=== PATIENT | male | born 1970 | race Caucasian/White ===

== ENCOUNTER → 2019-07-14 | Outpatient (CLI) | payer OTHER, SELFPAY ==
[2019-07-12 06:39] VITALS: BMI 38.9
--- NOTE | 2019-07-12 10:30 | MASS_PTH ---
PATIENT: CHAZ MCKEON LOC: [facility] U#:[id number] AGE/SX: 48/M ROOM: RE07/14/[address]: Dr. Blaine Vaughn MD : [id number] BED: DIS: 07/14/2019 SPEC #: [id number] RECD: 07/14/19 07:42 STATUS: SHIELA KENTRELL #: [id number] JOSEFINA: 07/12/19 10:[address]: Blaine Vaughn DEPT: SURGICAL PATHOLOGY RECD BY: Paresh Monte ENTERED: 07/14/19 09:31 SP TYPE: Mass OTHR DR: Davon Valentine, PLACEMENT INTERVIEWER-C Tissues: Abdomen, NOS Procedures: Surgery Specimen Level III HEADER OPERATION: Right abdomen biopsy PRE-OP DIAGNOSIS: Right abdomen mass TISSUE SUBMITTED: Right abdomen tissue MICROSCOPIC DIAGNOSIS Right abdomen mass, core biopsy: Mature adipose tissue, consistent with lipoma. Negative for malignancy. SJ:kaylynn 07/15/19 COMMENT Clinical correlation and appropriate follow up are necessary. MICROSCOPIC DESCRIPTION Slides are reviewed. GROSS DESCRIPTION Received in fixative is one container labeled with the patient's name and designated right abdomen. The specimen consists of multiple elongated fragments of fong soft tissue that in aggregate measure 1.5 x 1 x 0.1 cm. The specimen is totally submitted in one cassette. / SJ:kaylynn 07/14/19 TC:1 CPT: 40281
== END | disposition home or self-care (01) ==
LOC: LABSPEC 08:50
PROVIDERS: Family Provider Nurse Practitioner Family; PCP Nurse Practitioner Family; Referring Provider Surgery; Visit Provider Surgery
DX: R19.03 Right lower quadrant abdominal swelling, mass and lump (principal)
CPT/HCPCS: 88304; 88305

== ENCOUNTER → 2019-10-10 | Outpatient (CLI) | payer OTHER, SELFPAY ==
[2019-10-08 15:36] VITALS: BMI 38.9
--- NOTE | 2019-10-10 17:20 | CT_ITS ---
STUDY: CTA CHEST REASON FOR EXAM: Male, 49 years old. MARFAN SYNDROME, AORTIC ROOT DILATION, YEARLY CHECK UP RADIATION DOSAGE (If Supplied By Facility): CTDIvol = ( 13.85 ) mGy, DLP = ( 544.60 ) mGycm TECHNIQUE: The examination was performed with the intravenous administration of IV 100mL Isovue-370. Post-processing of the angiographic images was performed, with multiplanar reformation and 3D reconstruction. Individualized dose optimization techniques were used for this CT. COMPARISON: None. FINDINGS: Normal enhancement of the main pulmonary artery and right and left pulmonary arteries. Normal enhancement of the bilateral peripheral pulmonary arteries. There is no demonstrated pulmonary embolism. 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 The aneurysm measures approximately 5.4 cm in length. The ascending thoracic aorta is partially obscured by motion (no cardiac gating utilized) with greatest axial dimension measuring up to 3.6 cm, stable. Descending thoracic aorta (at the left pulmonary artery level) measures 2.9 x 2.9 cm. There is no demonstrated aortic dissection. There is mild cardiomegaly. Stable trace pericardial fluid. Normal mediastinum. Normal hilar regions. Normal visualized trachea and bronchi. The lungs are well expanded. Normal pulmonary parenchyma. Normal pleura. Normal chest wall structures. There are degenerative changes of thoracic spine. The spleen is surgically absent with residual splenic tissue/splenule is in the left upper abdomen. CT/CTA Chest W/WO Contrast IMPRESSION: 1. Increased size of fusiform aneurysm of the distal aortic/proximal ascending thoracic aorta currently measuring up to 4.2 cm in greatest axial dimension (previously measured up to 3.7 cm). 2. Mild cardiomegaly. Stable trace pleural fluid. Electronically Signed: Oni Gutierrez MD (Brooks) at 15:36 EST , Service support ,
== END | disposition home or self-care (01) ==
LOC: CT 17:20
PROVIDERS: PCP Nurse Practitioner Family; Referring Provider Specialist; Visit Provider Specialist
DX: I77.810 Thoracic aortic ectasia (principal); Q87.40 Marfan syndrome, unspecified
CPT/HCPCS: 71275; Q9967

== ENCOUNTER → 2019-10-23 | Outpatient (CLI) | payer OTHER, SELFPAY ==
[2019-10-08 15:36] VITALS: BMI 38.9
--- NOTE | 2019-10-23 14:58 | ECHOCS_ITS ---
Reason For Study: Dilated AO Root Procedure This was a 2D Doppler, Color Flow transthoracic echocardiogram. Contrast injection was performed. The study was technically difficult. Exam performed in department. Left Ventricle Normal LV size. The estimated ejection fraction is 65 %. No evidence for diastolic dysfunction. No regional wall motion abnormalities noted. Right Ventricle Normal RV size. Normal systolic function. Atria Normal left atrium. Normal right atrium. No doppler evidence for ASD. Mitral Valve There is no mitral valve stenosis. No mitral valve insufficiency. Tricuspid Valve There is no tricuspid stenosis. Unable to estimate RV systolic pressure due to insufficient tricuspid regurgitant envelope. No tricuspid valve insufficiency. Aortic Valve Trisinus/trileaflet aortic valve. There is no aortic stenosis. No aortic valve insufficiency. Pulmonic Valve There is no pulmonic valvular stenosis. No pulmonic valve insufficiency. Great Vessels Mildly dilated aortic root. Pericardium/Pleural No pericardial effusion. Medication 22 gauge I.V. with prn adaptor inserted into right arm. Diluted definity 3ml given slow IV push to enhance endocardial definition. MMode/2D Measurements & Calculations LVIDd: 5.2 cm IVSd: 1.3 cm Ao root diam: 4.3 cm LVIDs: 3.7 cm LVPWd: 1.4 cm LA dimension: 4.5 cm FS: 29.8 % LAV(MOD-sp4): 76.5 ml LA A4 area: 24.4 cm2 RA A4 area: 19.7 cm2 Time Measurements MV dec time: 0.27 sec Doppler Measurements & Calculations MV E max gabino: 124.4 cm/sec Lat Peak E' Gabino: 11.6 cm/sec Med Peak E' Gabino: 11.4 cm/sec MV A max gabino: 63.0 cm/sec E/E' lat: 10.8 E/E' med: 10.9 MV E/A: 2.0 MV V2 max: 146.6 cm/sec MV P1/2t max gabino: 147.5 cm/sec Ao V2 max: 147.2 cm/sec MV max P.6 mmHg MV P1/2t: 111.4 msec Ao max P.7 mmHg MV V2 mean: 70.1 cm/sec MV dec slope: 387.8 cm/sec2 Ao V2 mean: 91.4 cm/sec MV mean P.5 mmHg Ao mean P.9 mmHg MV V2 VTI: 42.6 cm MVA(P1/2t): 2.0 cm2 Ao V2 VTI: 29.8 cm LV V1 max: 124.2 cm/sec PA V2 max: 108.3 cm/sec TR max gabino: 323.2 cm/sec LV V1 max P.2 mmHg TR max P.8 mmHg LV V1 mean P.0 mmHg LV V1 mean: 80.9 cm/sec LV V1 VTI: 28.4 cm Interpretation Summary The estimated ejection fraction is 65 %. No evidence for diastolic dysfunction. Mildly dilated aortic root. Ordering Physician: Richard Davidson Referring Physician: Richard Davidson Performed By: Nader Knight RCS
== END | disposition home or self-care (01) ==
PROVIDERS: PCP Nurse Practitioner Family; Referring Provider Specialist; Visit Provider Specialist
DX: I35.1 Nonrheumatic aortic (valve) insufficiency (principal); I34.0 Nonrheumatic mitral (valve) insufficiency; I77.810 Thoracic aortic ectasia; Q87.40 Marfan syndrome, unspecified
CPT/HCPCS: 93306; Q9957; A4216; C8929

== ENCOUNTER → 2020-11-12 13:30 | Outpatient (CLI) | payer OTHER, SELFPAY ==
[2020-06-16 11:42] VITALS: BMI 37.7
--- NOTE | 2020-11-12 13:43 | ECHOCS_ITS ---
Reason For Study: AR, MR, Marfans Syndrome Procedure This was a 2D Doppler, Color Flow transthoracic echocardiogram. The study was technically difficult. Contrast injection was performed. Exam performed in department. Left Ventricle Normal LV size. The estimated ejection fraction is 60 %. No evidence for diastolic dysfunction. No regional wall motion abnormalities noted. Right Ventricle Normal RV size. Normal systolic function. Atria Normal left atrium. Normal right atrium. No doppler evidence for ASD. Mitral Valve There is no mitral valve stenosis. No mitral valve insufficiency. Tricuspid Valve There is no tricuspid stenosis. Trivial tricuspid valve insufficiency. Unable to estimate RV systolic pressure due to insufficient tricuspid regurgitant envelope. Aortic Valve There is no aortic stenosis. Trivial aortic valve insufficiency. Pulmonic Valve There is no pulmonic valvular stenosis. No pulmonic valve insufficiency. Great Vessels Mildly dilated aortic root. Pericardium/Pleural No pericardial effusion. Medication 22 gauge I.V. with prn adaptor inserted into left arm. Diluted definity 2ml given slow IV push to enhance endocardial definition. MMode/2D Measurements & Calculations LVIDd: 5.3 cm IVSd: 1.4 cm Ao root diam: 4.2 cm LVIDs: 3.3 cm LVPWd: 1.4 cm LA dimension: 4.6 cm FS: 36.5 % LAV(MOD-bp): 97.1 ml LA A4 area: 27.0 cm2 RA A4 area: 20.0 cm2 LAV(MOD-bp) Indexed: 36.1 ml/m2 LAV(MOD-sp2): 97.6 ml LAV(MOD-sp4): 97.9 ml Time Measurements MV dec time: 0.20 sec Doppler Measurements & Calculations MV E max gabino: 117.6 cm/sec Lat Peak E' Gabino: 8.3 cm/sec Med Peak E' Gabino: 9.0 cm/sec MV A max gabino: 61.3 cm/sec E/E' lat: 14.2 E/E' med: 13.0 MV E/A: 1.9 MV V2 max: 115.5 cm/sec MV P1/2t max gabino: 114.0 cm/sec Ao V2 max: 163.3 cm/sec MV max P.3 mmHg MV P1/2t: 89.1 msec Ao max P.7 mmHg MV V2 mean: 63.2 cm/sec MV dec slope: 374.9 cm/sec2 MV mean P.9 mmHg MV V2 VTI: 32.9 cm MVA(P1/2t): 2.5 cm2 AI max gabino: 365.4 cm/sec LV V1 max: 114.8 cm/sec PA V2 max: 98.2 cm/sec AI max P.4 mmHg LV V1 max P.3 mmHg AI dec slope: 239.9 cm/sec2 AI P1/2t: 446.1 msec TR max gabino: 277.8 cm/sec TR max P.9 mmHg Interpretation Summary The estimated ejection fraction is 60 %. No evidence for diastolic dysfunction. Mildly dilated aortic root. Trivial aortic valve insufficiency. The study was technically difficult. Contrast injection was performed. Ordering Physician: Richard Davidson Referring Physician: Richard Davidson Performed By: Nader Knight RCS
== END ==
PROVIDERS: PCP Nurse Practitioner Family; Referring Provider Specialist; Visit Provider Specialist
DX: Q87.40 Marfan syndrome, unspecified (principal)
CPT/HCPCS: 93306; Q9957; A4216; C8929

== ENCOUNTER 2021-02-07 21:30 | Emergency (ER) | payer OTHER, SELFPAY ==
[2020-12-03 08:38] VITALS: BMI 38.9
[2021-02-07] VITALS (8 sets, daily range): BP systolic 138–150; BP diastolic 57–71; PULSE 67–83; RESP 15–17; TEMP 36.9–38.6; O2SAT 94–99; BMI 39.5
--- NOTE | 2021-02-07 21:47 | RAD_ITS ---
STUDY: X-RAY CHEST REASON FOR EXAM: Male, 50 years old. Fever and cough TECHNIQUE: Single AP portable view of the chest. COMPARISON: 04/27/2014 FINDINGS: Lungs are mildly hypoinflated. There is diffuse patchy airspace disease bilaterally suggesting infection such as COVID. No consolidation or effusions Mild cardiomegaly. Normal mediastinum and gricel. Normal visualized pulmonary arteries. Normal visualized aortic arch and descending thoracic aorta. Normal visualized thoracic spine. Normal visualized ribs, clavicles, and shoulders. There is no demonstrated abnormality of the visualized soft tissue structures of the upper abdomen. RAD/Chest 1 View (Portable) IMPRESSION: Mild cardiomegaly. Diffuse patchy airspace disease bilaterally suggesting infection such as COVID. Electronically Signed: Vinnie Vazquez DO at 22:38 EDT Tel , Service support ,
--- NOTE | 2021-02-07 21:48 | EDS_ITS ---
HPI History of Present Illness Chief Complaint: Cold Sx Informant: patient Narrative Narrative: 50-year-old male presents the emergency department for the evaluation of fever. Patient states on Sunday night his symptoms began. He notes headache dry cough decreased appetite generalized myalgias and continued fever. Does not take anything for this. 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 He is on Xarelto for history of DVT. [facility] Medical History (Updated 02/07/21 @ 23:[address] Antolin Hernández DO) Aortic insufficiency Chronic anticoagulation Chronic neck and back pain Chronic venous insufficiency Dilated aortic root Erectile dysfunction HDL deficiency History of deep venous thrombosis Knee pain Marfans syndrome Migraine Mitral insufficiency Obesity (BMI 30-39.9) MARCIO (obstructive sleep apnea) Subcutaneous mass of abdominal wall Venous insufficiency of both lower extremities Ventral incisional hernia without obstruction or gangrene Home Medications rivaroxaban 2.5 mg tablet 2.5 mg PO DAILY tab 07/07/19 [History Last Taken Unknown] atenolol 50 mg tablet 50 mg PO QHS #90 tab 11/10/20 [Rx Last Taken Unknown] albuterol sulfate [Ventolin HFA] 2 puff INHALATION Q4H PRN PRN #1 inhaler 02/07/21 [Rx Last Taken Unknown] amoxicillin-pot clavulanate 875 mg PO Q12H #20 tablet 02/07/21 [Rx Last Taken Unknown] doxycycline monohydrate 100 mg PO BID #14 capsule 02/07/21 [Rx Last Taken Unknown] Allergy/AdvReac Type Severity Reaction Status Date / Time No Known Allergies Allergy Verified 02/07/21 21:33 Family History Mother Arthritis Sister Arthritis Diabetes High cholesterol Father Marfan's syndrome at age 37 Son Marfan's syndrome Daughter Marfan's syndrome Surgical History History of biopsy (~07/2019) History of eye surgery History of splenectomy History of vein stripping (~2013) Social History Smoking Status: Never smoker alcohol intake: current alcohol intake frequency: a few times a month substance use type: does not use caffeine: Yes Type: carbonated beverages Number of servings: 2, coffee Number of servings: 2 and tea ROS ROS ED Constitutional Constitutional ED: Reports chills, fever(s) and sweats; Denies weight loss Eyes Eyes: Denies change in vision or diplopia ENT ENT ED: Denies ear pain, rhinorrhea or sore throat Cardiovascular Cardiovascular: Denies chest pain, orthopnea, palpitations or racing heartbeat Respiratory/Chest Respiratory/Chest: Reports cough and dyspnea; Denies orthopnea or sputum Gastrointestinal Gastrointestinal: Reports other Details: Anorexia ; Denies abdominal pain, diarrhea, nausea or vomiting Genitourinary Genitourinary ED: Denies dysuria, hematuria or urinary frequency Musculoskeletal Musculoskeletal: Reports myalgias; Denies arthralgias or neck pain Integumentary Denies abscess or rash Neurologic Neurologic: Reports headache(s); Denies weakness Psychiatric Psychiatric: Denies anxiety, depression, suicidal ideation or suicidal thoughts Endocrine Endocrinology: Denies polydipsia, polyphagia or polyuria Allergic/Immunologic Allergic/Immunologic ED: Denies mouth swelling, tongue swelling or urticaria EXAM Physical Exam Const Vital Signs: 02/07/21 21:31 02/07/21 21:40 02/07/21 21:59 Temperature 101.5 F H 101.5 F H 101.2 F H Temperature Source Temporal Oral Temporal Pulse Rate 83 83 Respiratory Rate 15 15 Blood Pressure 138/57 H 138/57 H Blood Pressure Mean 84 84 Pulse Ox 94 94 Oxygen Delivery Method Room Air Room Air 02/07/21 22:12 02/07/21 22:28 Temperature Temperature Source Pulse Rate 80 Respiratory Rate 16 17 Blood Pressure 150/71 H Blood Pressure Mean 97 Pulse Ox 95 Oxygen Delivery Method Room Air Positive well nourished and well developed General Appearance ED: well developed HEENT Reports normocephalic, head/scalp atraumatic and moist mucous membranes Eyes PERRL and EOMs intact bilaterally Neck no lymphadenopathy, supple and no JVD Resp normal respiratory effort and clear to auscultation bilaterally Cardio regular rate, regular rhythm and no murmurs GI normal to inspection, nondistended, normoactive bowel sounds and non-tender Palpation: soft Back/Spine no CVA tenderness and normal ROM Extremity normal to inspection General Extremety ED: Negative for edema General Extremity: Negative for edema Neuro oriented x3 and CN's II-XII intact bilaterally Sensorium / Orientation: alert Motor Exam: strength 5/5 throughout Psych mental status grossly normal Mood & Affect: Negative for depressed or tearful Skin no rashes or lesions noted and no wounds MDM MDM MDM Narrative Medical decision making narrative: Patient's white blood cell count was elevated at 16.4. Lactic acid is normal. My interpretation of the chest x-ray is right lower lobe infiltrate. Covid test is negative influenza test is negative. Radiology reads the chest x-ray is multifocal infiltrates. I would disagree. Patient's vital signs are otherwise stable at this point. I think it is reasonable that we can treat him at home for pneumonia. I will write for albuterol MDI with spacer, Augmentin, and doxycycline. Patient to return if worsening or concerns. Lab Data Attestation: I reviewed the patient's lab results. Labs: Laboratory Results - last 24 hr 02/07/21 02/07/21 02/07/21 22:10 22:10 22:10 WBC 16.4 H RBC 4.59 L Hgb 14.0 Hct 43.0 MCV 93.7 MCH 30.5 MCHC 32.6 RDW Std Deviation 45.8 H RDW Coeff of Gia 13.3 Plt Count 241 MPV 10.8 Immature Gran % (Auto) 0.500 Neut % (Auto) 63.9 Lymph % (Auto) 20.9 Catron % (Auto) 14.2 H Eos % (Auto) 0.1 Baso % (Auto) 0.4 Absolute Neuts (auto) 10.5 H Absolute Lymphs (auto) 3.43 Nucleated RBC % 0 Differential Comment SCANNED Diff Path Review January foll PT 14.7 INR 1.2 APTT 34.5 Sodium 140 Potassium 3.8 Chloride 105 Carbon Dioxide 27.0 Anion Gap 8 BUN 13 Creatinine 1.09 Estim Creat Clear Calc 101.75 Est GFR (MDRD) Af Amer 93 Est GFR (MDRD) Non-Af 77 BUN/Creatinine Ratio 11.9 Glucose 114 H Lactic Acid Calcium 8.7 Total Bilirubin 1.50 H AST 30 ALT 44 Alkaline Phosphatase 115 Total Protein 7.7 Albumin 3.4 Globulin 4.3 H Albumin/Globulin Ratio 0.8 L 02/07/21 22:10 WBC RBC Hgb Hct MCV MCH MCHC RDW Std Deviation RDW Coeff of Gia Plt Count MPV Immature Gran % (Auto) Neut % (Auto) Lymph % (Auto) Catron % (Auto) Eos % (Auto) Baso % (Auto) Absolute Neuts (auto) Absolute Lymphs (auto) Nucleated RBC % Differential Comment Diff Path Review PT INR APTT Sodium Potassium Chloride Carbon Dioxide Anion Gap BUN Creatinine Estim Creat Clear Calc Est GFR (MDRD) Af Amer Est GFR (MDRD) Non-Af BUN/Creatinine Ratio Glucose Lactic Acid 1.3 Calcium Total Bilirubin AST ALT Alkaline Phosphatase Total Protein Albumin Globulin Albumin/Globulin Ratio Radiography Diagnostic Testing: Radiology Impression Chest X-Ray 02/07/21 21:47 IMPRESSION: Mild cardiomegaly. Diffuse patchy airspace disease bilaterally suggesting infection such as COVID. Electronically Signed: Vinnie DO Taylor at 22:38 EDT Tel , Service support , Discharge Plan Triage Chief Complaint: Cold Sx ED Provider: Antolin Hernández Dx/Rx/DC Orders Clinical Impression: Pneumonia Instructions: ED Pneumonia (Adult) Prescriptions: New doxycycline monohydrate 100 MG capsule 100 mg PO BID Qty: 14 RF: 0 albuterol sulfate [Ventolin HFA] 1 INHALER inhaler 2 puff inhalation Q4H PRN PRN (Reason: Wheezing) Qty: 1 RF: 0 amoxicillin-pot clavulanate [amoxicillin-pot clavulanate] 875 MG tablet 875 mg PO Q12H Qty: 20 RF: 0 No Action Xarelto 2.5 mg tablet 2.5 mg PO DAILY RF: 0 atenolol 50 mg tablet 50 mg PO QHS Qty: 90 RF: 3 Primary Care Provider: Davon Valentine NP Referrals: Davon Valentine JD EDWARDS CONSULTANT, JD EDWARDS CONSULTANT-C [Primary Care Provider] - 1 Week Activity Restrictions/Additional Instructions: Return if worsening or concerns Disposition Disposition: Home, self care
[2021-02-07] MEDS: Acetaminophen 500 MG Tablet 1000 MG PO (22:01)
[2021-02-07] MEDS: 0.9% Normal Saline 1,000 ML 999 ML IV (22:15)
[2021-02-07 22:30] LABS: Absolute Lymphocyte Count 3.43 X10^3/uL (0.83-4.51); Absolute Neutrophil Count 10.5 X10^3/uL (2.0-7.7); Basophil# 0.07 X10^3/uL; Basophil% 0.4 % (0-1); Eosinophil# 0.01 X10^3/uL; Eosinophils% 0.1 % (0-5); Lymphocyte # 3.43 X10^3/ul (0.83-4.51); Lymphocyte % 20.9 % (19-41); Mean Corp Hgb Conc 32.6 g/dL (32-36); Mean Corpuscular Hgb 30.5 pg (27.0-32.0); Mean Corpuscular Volume 93.7 fL (80-94); Mean Platelet Vol. 10.8 fl (6.2-12.0); Monocyte# 2.33 X10^3/uL; Monocyte% 14.2 % (0-10); NRBC Flagged by Analyzer 0 % (0-5); Neutrophil # 10.52 X10^3/uL (2.7-7.7); Neutrophil % 63.9 % (47-70); POSITIVE DIFFERENTIAL YES; Platelet Count 241 K/mm3 (150-450); RBC Distribution Width CV 13.3 % (11.6-14.6); RBC Distribution Width SD 45.8 fl (35.1-43.9); Red Blood Count 4.59 M/mm3 (4.6-6.2); White Blood Count 16.4 K/mm3 (4.4-11.0)
[2021-02-07 22:34] LABS: Differential Indicated SCAN CRITERIA MET
[2021-02-07 22:42] LABS: International Normalized Ratio 1.2; Prothrombin Time (Protime)PT. 14.7 SECONDS (11.7-14.9)
[2021-02-07 22:43] LABS: Partial Thromboplast Time 34.5 Seconds (24.1-36.2)
[2021-02-07 22:44] LABS: ALB/GLOB Ratio 0.8 RATIO (0.9-2.4); AST(SGOT) 30 U/L (15-37); Alanine Aminotransfer ALT/SGPT 44 U/L (16-61); Albumin, Serum 3.4 g/dL (3.2-5.0); Alkaline Phosphatase 115 U/L (45-117); Anion Gap 8 (5-15); BUN 13 mg/dL (7-18); BUN/Creat Ratio 11.9 RATIO (10-20); Calcium,Total 8.7 mg/dL (8.5-10.1); Chloride 105 mmol/L (98-107); Creatinine, Serum 1.09 mg/dL (0.70-1.30); EST Glomerular Filtration Rate 77 mL/min (>60); Est Glom Filt Rate - Afr Amer 93 mL/min (>60); Estimated Creatinine Clearance 101.75 ml/min; Globulin 4.3 g/dL (2.2-4.2); Glucose 114 mg/dL (74-106); Potassium 3.8 mmol/L (3.5-5.1); Protein, Total 7.7 g/dL (6.4-8.2); Sodium Level 140 mmol/L (136-145)
[2021-02-07 22:52] LABS: Lactic Acid 1.3 mmol/L (0.4-1.9)
[2021-02-07 23:04] LABS: Differential Comment SCANNED
[2021-02-08 10:55] LABS: Pathologist Review Reviewed
== END 2021-02-07 23:57 | disposition home or self-care (01) ==
PROVIDERS: Emergency Provider Emergency Medicine; PCP Nurse Practitioner Family
DX: J18.9 Pneumonia, unspecified organism (principal); I35.1 Nonrheumatic aortic (valve) insufficiency; E66.9 Obesity, unspecified; Z68.30 Body mass index [BMI] 30.0-30.9, adult; Z86.718 Personal history of other venous thrombosis and embolism; Z79.02 Long term (current) use of antithrombotics/antiplatelets
CPT/HCPCS: 71045; 80053; 83605; 85025; 85610; 85730; 87040; 87426; 87804; 96360; 99284; J7030; A4216

== ENCOUNTER → 2022-02-23 | Outpatient (CLI) | payer OTHER, SELFPAY ==
--- NOTE | 2022-02-23 07:55 | ECHOCS_ITS ---
Reason For Study: Dilated Ao Root, Murmur, Marfan's Syndrome Procedure This was a 2D Doppler, Color Flow transthoracic echocardiogram. The study was technically difficult. Contrast injection was performed. Exam performed in department. Left Ventricle Normal LV size. Left ventricular systolic function is normal. The estimated ejection fraction is 60 %. Diastolic function is indeterminate. No regional wall motion abnormalities noted. Right Ventricle Normal RV size. Normal systolic function. Atria The left atrium is mildly enlarged. Normal right atrium. No doppler evidence for ASD. Mitral Valve There is no mitral annular calcification. Normal mitral valve. Trivial mitral valve insufficiency. Tricuspid Valve Normal tricuspid valve. Trivial tricuspid valve insufficiency. Unable to estimate RV systolic pressure due to insufficient tricuspid regurgitant envelope. Aortic Valve 2D Echocardiographic images appearing compatible with an underlying bicuspid aortic valve mild focal thickening/calcification. Mild (1+) aortic valve insufficiency. Pulmonic Valve The pulmonic valve is not well visualized. Mild (1+) eccentric pulmonic valve insufficiency. Great Vessels The thoracic aorta appears to be dilated at the sinus level at 4.8 cm. Mildly dilated aortic root. Pericardium/Pleural No pericardial effusion. Medication 22 gauge I.V. with prn adaptor inserted into right arm. Diluted definity 3ml given slow IV push to enhance endocardial definition. MMode/2D Measurements & Calculations LVIDd: 5.2 cm IVSd: 1.2 cm LVOT diam: 2.4 cm LVIDs: 3.5 cm LVPWd: 1.2 cm RVDd: 3.6 cm FS: 32.5 % LVOT area: 4.3 cm2 Ao root diam: 4.0 cm LAV(MOD-bp): 79.7 ml LVAd ap4: 46.2 cm2 LAV(MOD-bp) Indexed: 29.3 ml/m2 LVLd ap4: 9.3 cm LAV(MOD-sp2): 62.7 ml EDV(MOD-sp4): 186.7 ml LAV(MOD-sp4): 98.8 ml EDV(sp4-el): 194.6 ml LVAs ap4: 29.0 cm2 LVLs ap4: 8.4 cm ESV(MOD-sp4): 88.4 ml ESV(sp4-el): 84.3 ml EF(MOD-sp4): 52.6 % EF(sp4-el): 56.7 % LVAd ap2: 45.2 cm2 SV(MOD-sp4): 98.3 ml SV(MOD-sp2): 80.6 ml LVLd ap2: 9.6 cm EDV(MOD-sp2): 176.0 ml EDV(sp2-el): 181.0 ml LVAs ap2: 30.9 cm2 LVLs ap2: 8.7 cm ESV(MOD-sp2): 95.4 ml ESV(sp2-el): 93.0 ml EF(MOD-sp2): 45.8 % SV(sp4-el): 110.3 ml LA dimension(2D): 4.7 cm LA A4 area: 28.2 cm2 RA A4 area: 18.1 cm2 Doppler Measurements & Calculations MV E max gabino: 87.0 cm/sec Lat Peak E' Gabino: 8.7 cm/sec Med Peak E' Gabino: 5.2 cm/sec MV A max gabino: 48.0 cm/sec E/E' lat: 10.0 E/E' med: 16.8 MV E/A: 1.8 Ao V2 max: 170.8 cm/sec AI max gabino: 331.3 cm/sec LV V1 max: 120.1 cm/sec Ao max P.7 mmHg AI max P.0 mmHg LV V1 max P.8 mmHg Ao V2 mean: 115.2 cm/sec LV V1 mean P.9 mmHg Ao mean P.9 mmHg AI dec slope: 159.4 cm/sec2 LV V1 mean: 80.6 cm/sec Ao V2 VTI: 42.4 cm AI P1/2t: 608.7 msec LV V1 VTI: 30.8 cm MELISSA(I,D): 3.2 cm2 MELISSA(V,D): 3.1 cm2 SV(LVOT): 133.6 ml PA V2 max: 89.6 cm/sec ECHO/Echo Complete W/ Contrast Interpretation Summary The study was technically difficult. Contrast injection was performed. Left ventricular systolic function is normal. The estimated ejection fraction is 60 %. The left atrium is mildly enlarged. Trivial mitral valve insufficiency. Trivial tricuspid valve insufficiency. 2D Echocardiographic images appearing compatible with an underlying bicuspid ao rtic valve mild focal thickening/calcification. Mild (1+) aortic valve insufficiency. Mild (1+) eccentric pulmonic valve insufficiency. The thoracic aorta appears to be dilated at the sinus level at 4.8 cm. Unable to estimate RV systolic pressure due to insufficient tricuspid regurgita nt envelope. Diastolic function is indeterminate. Ordering Physician: Titus Irving/Beka Das Referring Physician: Davon Valentine Performed By: Tootie De La Torre RDCS
== END | disposition home or self-care (01) ==
PROVIDERS: PCP Nurse Practitioner Family; Referring Provider Nurse Practitioner Family; Visit Provider Nurse Practitioner Family
DX: Q87.40 Marfan syndrome, unspecified (principal)
CPT/HCPCS: 93306; Q9957; A4216; C8929

== ENCOUNTER 2022-08-13 20:26 | Emergency (ER) | payer SELFPAY, OTHER ==
[2022-08-13 20:27] VITALS: BP 152/94; PULSE 75; RESP 16; TEMP 36.3; O2SAT 98; BMI 38.2
--- NOTE | 2022-08-13 20:40 | EKG12_ITS ---
Test Reason : CP Blood Pressure : / mmHG Vent. Rate : 074 BPM Atrial Rate : 074 BPM P-R Int : 206 ms QRS Dur : 120 ms QT Int : 402 ms P-R-T Axes : 064 078 235 degrees QTc Int : 446 ms Normal sinus rhythm Possible Left atrial enlargement Incomplete left bundle branch block ST & T wave abnormality, consider inferolateral ischemia Abnormal ECG Confirmed by JULIANN SUH, FANI ([id number]), videotape editor MERON CRUZ ([id number]) on 08/16/2022 11:04:45 AM Referred By: Confirmed By:FANI HUMPHREYS MD
[2022-08-13 20:48] LABS: Absolute Neutrophil Count 3.1 X10^3/uL (2.0-7.7); Basophil# 0.18 X10^3/uL; Basophil% 1.7 % (0-1); Eosinophils% 20.5 % (0-5); Hematocrit 32.9 % (40-54); Hemoglobin 10.7 g/dL (13.0-16.5); Lymphocyte % 41.3 % (19-41); Mean Corp Hgb Conc 32.5 g/dL (32-36); Mean Corpuscular Volume 92.2 fL (80-94); Mean Platelet Vol. 8.9 fl (6.2-12.0); Monocyte% 6.7 % (0-10); NRBC Flagged by Analyzer 0 % (0-5); Neutrophil # 3.08 X10^3/uL (2.7-7.7); Neutrophil % 29.7 % (47-70); POSITIVE DIFFERENTIAL YES; Platelet Count 340 K/mm3 (150-450); RBC Distribution Width CV 13.9 % (11.6-14.6); RBC Distribution Width SD 46.9 fl (35.1-43.9); Red Blood Count 3.57 M/mm3 (4.6-6.2); White Blood Count 10.4 K/mm3 (4.4-11.0)
--- NOTE | 2022-08-13 20:57 | RAD_ITS ---
INDICATION: Right sided chest pain, pleuritic EXAMINATION/TECHNIQUE: X-RAY - XR Chest 1 View COMPARISON: 02/07/2021 chest x-ray FINDINGS: LINES/DEVICES: None. Dual-lead cardiac pacing device projects over the left chest. Intact sternotomy wires are present. LUNGS: Symmetric normal lung volumes. No airspace opacity or abnormal interstitial pattern. No nodule or mass. No pleural effusion or pneumothorax. MEDIASTINUM AND CARDIOVASCULAR STRUCTURES: Heart is upper limit of normal size, however, there is no evidence of pulmonary vascular congestion. BONES AND SOFT TISSUES: No fracture or focal osseous lesion. RAD/Chest 1 View (Portable) IMPRESSION: 1. No radiographic evidence of acute cardiopulmonary disease. Electronically Signed: Haresh Dash DO at 21:34 EST ,
[2022-08-13 21:01] LABS: International Normalized Ratio 2.5; Prothrombin Time (Protime)PT. 26.8 SECONDS (11.7-14.9)
[2022-08-13 21:05] LABS: Anion Gap 5 (5-15); BUN 18 mg/dL (7-18); BUN/Creat Ratio 22.7 RATIO (10-20); Calcium,Total 8.4 mg/dL (8.5-10.1); Chloride 110 mmol/L (98-107); Creatinine, Serum 0.79 mg/dL (0.70-1.30); EST Glomerular Filtration Rate 110 mL/min (>60); Est Glom Filt Rate - Afr Amer 133 mL/min (>60); Estimated Creatinine Clearance 142.55 ml/min; Glucose 100 mg/dL (74-106); Potassium 4.6 mmol/L (3.5-5.1); Sodium Level 142 mmol/L (136-145); Troponin-I HS 12 pg/mL (3.0-78.0)
[2022-08-13 21:08] LABS: Differential Indicated SCAN CRITERIA MET; Eosinophil# 2.13 X10^3/uL
[2022-08-13 21:09] LABS: Differential Comment SCANNED
[2022-08-13 21:27] VITALS: BP 140/77; PULSE 73; RESP 18; O2SAT 95
--- NOTE | 2022-08-13 22:51 | ED.VIS.CHEST ---
HPI History of Present Illness Chief Complaint: Chest Pain Detail of Chief Complaint: Right-sided chest pain with pleuritic component radiating to the right scap Informant: patient and spouse/S.O. 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 He had a metallic prosthetic aortic valve placed and the thoracic aorta arch replaced. This was replaced because he has history of Marfan's and there was concern by cardiothoracic surgeon that he may develop a dissection. Surgery was July 12. He is presently on Coumadin. INR last week was 2.9. He denies hemoptysis. He denies asymmetry of his legs, leg pain or discoloration from normal. He does have remote history of DVT. He denies hematemesis, melena or hematochezia. He denies fever, chills night sweats. He does report insignificant mild cough. He denies rhinorrhea, postnasal drainage or sore throat. He denies ear pain or decreased hearing. He denies urologic symptoms. Prior Similar Symptoms: No Recent Illness/Hospitalization: Yes (Described in the HPI narrative) CVD Risk Factors: Positive for Hypertension; Negative for Hypercholesterolemia or Family History 1' </=55 PE Risk Factors: Positive for Recent Travel/Surgery and - (Patient is on Coumadin. INR is 2.9.); Negative for Recent Immobilization, Prior DVT or PE, Cancer or OCP + Smoking + >/=35 TAD Risk Factors: Positive for Marfan's Syndrome [facility] Medical History Aortic insufficiency Aortic root aneurysm Chronic anticoagulation Chronic neck and back pain Chronic venous insufficiency Dilated aortic root Erectile dysfunction HDL deficiency History of deep venous thrombosis Knee pain Marfans syndrome Migraine Mitral insufficiency Obesity (BMI 30-39.9) MARCIO (obstructive sleep apnea) Subcutaneous mass of abdominal wall Thoracic aortic aneurysm without rupture Venous insufficiency of both lower extremities Ventral incisional hernia without obstruction or gangrene Home Medications acetaminophen 325 mg capsule 650 mg PO Q4H PRN Pain 12/11/22 [History Last Taken Unknown] aspirin 81 mg chewable tablet 81 mg PO DAILY 08/13/22 [History Last Taken Unknown] colchicine 0.6 mg tablet 0.6 mg PO QODAY 08/13/22 [History Last Taken Unknown] metoprolol tartrate 25 mg tablet 25 mg PO BID 08/13/22 [History Last Taken Unknown] warfarin 3 mg tablet 3 mg PO DAILY 08/13/22 [History Last Taken Unknown] Allergy/AdvReac Type Severity Reaction Status Date / Time lidocaine Allergy Other Verified 08/13/22 20:34 Family History Mother Arthritis Sister Arthritis Diabetes High cholesterol Father Marfan's syndrome at age 37 Son Marfan's syndrome Daughter Marfan's syndrome Surgical History H/O aortic valve replacement History of biopsy (~07/2019) History of eye surgery History of splenectomy History of vein stripping (~2013) Social History (Updated 08/13/22 @ 22:[address] Lizandro Munoz MD) household members: spouse Smoking Status: Never smoker alcohol intake: current alcohol intake frequency: a few times a month substance use type: does not use caffeine: Yes Type: carbonated beverages Number of servings: 2, coffee Number of servings: 2 and tea ROS ROS ED Constitutional Constitutional ED: Denies chills, fever(s), subjective, sweats or weight loss Eyes Eyes: Reports none ENT ENT ED: Denies ear pain, rhinorrhea or sore throat Cardiovascular Cardiovascular: Reports as per HPI; Denies orthopnea or paroxysmal nocturnal dyspnea Respiratory/Chest Respiratory/Chest: Denies cough, dyspnea, dyspnea on exertion, orthopnea, paroxysmal nocturnal dyspnea or sputum Gastrointestinal Gastrointestinal: Denies abdominal pain, constipation, diarrhea, melena, nausea or vomiting Genitourinary Genitourinary ED: Denies dysuria, hematuria or urinary frequency Musculoskeletal Musculoskeletal: Reports back pain; Denies arthralgias, myalgias or neck pain Integumentary Denies Abrasions or rash Neurologic Neurologic: Denies headache(s), paresthesias or weakness Psychiatric Psychiatric: Denies anxiety or depression Hematologic/Lymphatic Hematologic/Lymphatic: Reports easy bruising; Denies easy bleeding or lymphadenopathy Allergic/Immunologic Allergic/Immunologic ED: Denies mouth swelling or tongue swelling EXAM Physical Exam Const Vital Signs: 08/13/22 20:27 08/13/22 20:42 08/13/22 20:46 Temperature 97.3 F L Temperature Source Temporal Pulse Rate 75 Respiratory Rate 16 Respiratory Effort Normal Non-Labored Blood Pressure 152/94 H Blood Pressure Mean 113 Pulse Ox 98 Oxygen Delivery Method Room Air Room Air 08/13/22 21:27 Temperature Temperature Source Pulse Rate 73 Respiratory Rate 18 Respiratory Effort Blood Pressure 140/77 H Blood Pressure Mean 98 Pulse Ox 95 Oxygen Delivery Method Room Air Positive well nourished, well developed and obese General Appearance ED: well developed and NAD; Negative for pallor Nutritional Appearance: obese HEENT Reports TM's clear and moist mucous membranes HEENT Narrative: Ears normal. Nares patent. Mucosa moist. Teeth normal. Uvula midline. No erythema or exudate the posterior pharynx. normocephalic and atraumatic Tympanic Membrane ED: Yes TM's clear Eyes PERRL and EOMs intact bilaterally General Eye ED: Negative for pale conjunctiva or scleral icterus Neck no lymphadenopathy, supple and no JVD Neck Narrative: Trachea is midline. There is no carotid bruit. Chest Wall inspection of chest normal and palpation of chest normal Chest Narrative: Well-healed median sternotomy scar noted. There is no sign for consent. Resp normal respiratory effort and clear to auscultation bilaterally Cardio regular rate, regular rhythm, S1 normal heart sound, S2 normal heart sound and no murmurs GI normal to inspection, nondistended, normoactive bowel sounds, soft to palpation, non-tender, non-distended and no masses; Negative for hepatosplenomegaly Back/Spine no CVA tenderness Back/Spine Narrative: Examination of the back is unremarkable. Extremity Extremity Narrative: Bilateral pitting edema, which patient reports is normal. There is no asymmetry, there is no discoloration, there is no leg vein distention, no palpable cord sounds on the distribution deep venous system. General Extremety ED: Yes edema General Extremity: edema Neuro oriented x3, CN's II-XII intact bilaterally and no sensory deficits noted Sensorium / Orientation: awake and alert Motor Exam: strength 5/5 throughout Psych mental status grossly normal Skin no rashes or lesions noted and no wounds General Skin Exam: Negative for jaundice or pallor MDM MDM MDM Narrative Medical decision making narrative: Patient has slight cough. He does complain of pleuritic sided chest pain. He was sent in by the [facility] nurse because of concerned this may represent cardiac ischemia. This may represent pneumonia, pleurisy, need to consider pulmonary embolus. EKG was obtained to rule out cardiac ischemia. Appropriate blood work was obtained. Lab Data Attestation: I reviewed the patient's lab results. Lab results narrative: Patient has mild anemia with an H&H 10.7 and 32.9. BC is unremarkable. INR is 2.55. Electrolyte panels remarkable. Troponin is normal renal function is normal. Labs: Laboratory Results - last 24 hr 08/13/22 08/13/22 08/13/22 20:12 20:40 20:40 WBC 10.4 RBC 3.57 L Hgb 10.7 L Hct 32.9 L MCV 92.2 MCH 30.0 MCHC 32.5 RDW Std Deviation 46.9 H RDW Coeff of Gia 13.9 Plt Count 340 MPV 8.9 Immature Gran % (Auto) 0.100 Neut % (Auto) 29.7 L Lymph % (Auto) 41.3 H Zapata % (Auto) 6.7 Eos % (Auto) 20.5 H Baso % (Auto) 1.7 H Absolute Neuts (auto) 3.1 Absolute Lymphs (auto) 4.30 Nucleated RBC % 0 Differential Comment SCANNED PT 26.8 H INR 2.5 Sodium 142 Potassium 4.6 Chloride 110 H Carbon Dioxide 27.0 Anion Gap 5 BUN 18 Creatinine 0.79 Estim Creat Clear Calc 142.55 Est GFR (MDRD) Af Amer 133 Est GFR (MDRD) Non-Af 110 BUN/Creatinine Ratio 22.7 H Glucose 100 Calcium 8.4 L Troponin I High Sens 12 Radiography Chest X-Ray - ED: 1 View, Read by ED Physician, Unchanged, Normal, Heart, Lungs (There is poor inspiratory volume and evidence of atelectasis. There is no infiltrate. There is no effusion.), Mediastinum, Bony Structures and No Acute Disease Diagnostic Testing: Clinical Impression(s) from Imaging Studies Chest X-Ray 08/13/22 20:57 IMPRESSION: 1. No radiographic evidence of acute cardiopulmonary disease. Electronically Signed: Haresh Dash DO at 21:34 EST , Chest x-ray reveals limited in story volume. Discharge Plan Triage Chief Complaint: Chest Pain ED Provider: Lizandro Munoz Dx/Rx/DC Orders Clinical Impression: Pleuritic chest pain, Anticoagulant long-term use, Marfans syndrome, Aortic valve prosthesis present Instructions: ED Pleurisy Prescriptions: No Action warfarin 3 mg Tablet 3 mg PO DAILY aspirin [Baby Aspirin] 81 mg Tablet,Chewable 81 mg PO DAILY colchicine 0.6 mg Tablet 0.6 mg PO QODAY metoprolol tartrate 25 mg Tablet 25 mg PO BID acetaminophen 325 mg Capsule 650 mg PO Q4H PRN (Reason: Pain) Primary Care Provider: Davon Valentine NP Referrals: Davon Valentine NP, [employer] [employer] [Primary Care Provider] - 1 Week if not improving Disposition Disposition: Home, Self Care
[2022-08-13 23:01] VITALS: BP 139/73; PULSE 76; RESP 18; O2SAT 97
== END 2022-08-13 23:12 | disposition home or self-care (01) ==
PROVIDERS: Emergency Provider Emergency Medicine; PCP Nurse Practitioner Family; Visit Provider Emergency Medicine
DX: R07.81 Pleurodynia (principal); Q87.40 Marfan syndrome, unspecified; Z79.01 Long term (current) use of anticoagulants; Z95.2 Presence of prosthetic heart valve
CPT/HCPCS: 71045; 80048; 84484; 85025; 85610; 93005; 99285; A4216

== ENCOUNTER → 2022-09-27 | Outpatient (CLI) | payer SELFPAY, OTHER ==
--- NOTE | 2022-09-27 09:51 | CR.HP_ITS ---
CR - History & Physical - General Arrival date:: 09/27/22 Arrival time:: 09:51 Date of Referral:: 09/06/22 Date of CR Evaluation:: 09/27/22 Referring Physician: Dr. Rosetta Lynch Primary Diagnosis: Heart valve replacement - History of Present Cardiac Event Onset Date: Enter Onset Date of cardiac illnesses in Comment field below Heart valve replacement or repair:: Yes - 07/12/22 - Sleep Disorder Evaluation Hx of Sleep Apnea: Yes Do you snore loudly (louder than talking or can be heard through closed doors)?: Yes - pt declines sleep study Do you often feel tired/ fatigued/ sleepy during daytime?: Yes Has anyone observed you stop breathing during sleep?: No History of Hypertension (for STOP score): No STOP Results: Positive - Medications Home Medications: Ambulatory Orders Medication Instructions Recorded acetaminophen 325 mg capsule 650 mg PO Q4H PRN Pain 08/13/22 aspirin 81 mg chewable tablet 81 mg PO DAILY 08/13/22 colchicine 0.6 mg tablet 0.6 mg PO QODAY 08/13/22 metoprolol tartrate 25 mg tablet 25 mg PO BID 08/13/22 warfarin 3 mg tablet 3 mg PO DAILY 08/13/22 - Allergies Allergies/Adverse Reactions: Allergies lidocaine Allergy (Verified 08/13/22 20:34) Other stated when given in the IV at [facility] pt coded Advanced Directives - Advanced Directives Power of Academic Guidance Specialist: No Living Will: No Advance Directives Information Provided: No Advance Directives on File: No DNR Order?:: No Past Medical History - Covid-19 Screening Has a serious heart condition:: Yes - Past Medical Illness Medical History: Past Medical History (Last Reviewed 08/13/22 @ 22:[address] Lizandro Munoz MD) Aortic insufficiency I35.1 Aortic root aneurysm I71.21 Chronic anticoagulation Z79.01 Chronic neck and back pain M54.2, M54.9, G89.29 Chronic venous insufficiency I87.2 Dilated aortic root I77.810 Erectile dysfunction N52.9 HDL deficiency E78.6 History of deep venous thrombosis Z86.718 Knee pain M25.569 Marfans syndrome Q87.40 Migraine G43.909 Mitral insufficiency I34.0 Obesity (BMI 30-39.9) E66.9 MARCIO (obstructive sleep apnea) G47.33 Subcutaneous mass of abdominal wall R22.2 Thoracic aortic aneurysm without rupture I71.2 Venous insufficiency of both lower extremities I87.2 Ventral incisional hernia without obstruction or gangrene K43.2 - Past Surgical History Surgical History: Past Surgical History (Last Reviewed 08/13/22 @ 22:[address] Lizandro Munoz MD) H/O aortic valve replacement Z95.2 History of biopsy Onset Date: ~07/2019 Z98.890 of abdominal mass History of eye surgery Z98.890 History of splenectomy Z90.81 History of vein stripping Onset Date: ~2013 Z98.890 - Family History Summary Family History: Family History (Last Reviewed 08/13/22 @ 22:[address] Lizandro Munoz MD) Mother Arthritis Sister Arthritis Diabetes High cholesterol Father Marfan's syndrome at age 37 Son Marfan's syndrome Daughter Marfan's syndrome Social History - Smoking History Smoking Status: Never smoker Hx Tobacco Use: No - Alcohol Use Alcohol Usage: Yes - socially - Substance Abuse Hx Substance Use: No - Occupation Occupation (List type of work in comments):: Employed Hours worked per day:: 8 - Hobbies, Recreation, Social Activities Hobbies: Other - being oustside Recreational Activities: I am able to engage in all my recreational activities Social Environment - Status Marital Status: - Current Living Arrangements Living Environment:: Family - Children How many children do you have?: 3 Do any of your children live nearby?: Yes - Safety Do you feel safe in your surroundings?: Yes - Assistance Do you need any assistance at home?: no Review of Systems - Review of Systems Hints: Right click = Denies ([place]ash). Left click = Reports ([place]) Review of Present Symptoms: Reports: Shortness of Breath with Exertion, PVD, Operative Discomfort - occasional, Angina, Dizziness/Lightheadedness, Fatigue, Appetite - Normal, Sleep - Normal. Denies: Shortness of Breath at Rest, Wound Healing, Heart Arrhythmia/Irregularities, Appetite - Special Diet, Sexual Changes - Pain Is Patient Pain Free?: Yes Pain Location: none Risk Factor Assessment - Vital Signs Pulse Ox: 96 - Pulse Pulse Rate: 74 Pulse Rhythm: Regular - Hypertension Blood Pressure Sitting - Left Arm: 102/70 - Stress Stress: Home/Family - Obesity Height: 6 ft 5 in Weight:: 142.428 kg Weight in Pounds: 314.0 lbs Body Mass Index (BMI): 37.2 Nutritional Referral for Obesity: Yes - medical nutrition therapy - Physical Inactivity Physical Inactivity: Reg Exercise 30 min/day - walking - Risk Stratification Risk Guidelines: Lowest Risk: Risk Factor for Smoking, Moderate Risk: Risk Factor for Dyslipidemia, Risk Factor for Diabetes, Risk Factor for Hypertension, Risk Factor for Sedentary Lifestyle, Risk Factor for Depression, Highest Risk: Risk Factor for Obesity - Family History Family History: Family History (Last Reviewed 08/13/22 @ 22:[address] Lizandro Munoz MD) Mother Arthritis Sister Arthritis Diabetes High cholesterol Father Marfan's syndrome Son Marfan's syndrome Daughter Marfan's syndrome Motivation - Motivation to Participate On a scale of 1 to 10, how prepared are you to commit to attending program?: 8 What do you see as barriers to successfully being able to complete the program?: nothing What do you see as the benefits of succesfully completing the program? In other words, what do you hope to get out of participating in the program?: stamina, exercise program, weigh loss Are there issues you are dealing with that will interfere with completing the program?: no Do you have a spouse or signficant other, family or friends who will help support you to complete the program?: yes
[2022-09-27 10:54] VITALS: BP 102/70; PULSE 74; O2SAT 96; BMI 37.2
--- NOTE | 2022-09-27 10:55 | CR.ITP_ITS ---
Diagnosis - General Information Admitting Diagnosis: Heart Valve Replacement Personal Learning Style:: Audio/Visual, Demonstration, Group, Individual Preference, Written Stage of change r/t lifestyle modifications:: Contemplation Gave educational material for:: Treating Heart Disease, Emotions & Heart Disease, Stress Management & Relaxation, Sleep Disorders & Heart Disease, How The Heart Works, What it means to have Heart Disease, How Coronary Artery Disease is Diagnosed, Heart Procedures, What Heart Medications Do, Risk Factors & Modifications, Living an Active Life, Nutrition - Education/Goals Cardiac Rehabilitation Goals: 1. Maintain the individual as the primary focus of care. 2. To improve the patient's quality of life. 3. Identification of cardiac risk factors and provide cardiac risk factor management. 4. Enhance the psychosocial status of the patient. 5. Reconditioning enough to allow the patient to resume customary activities. 6. Control symptoms of cardiac disease Personal Goals: Initial Assessment: Participate in home exercise program, Improve muscle strength and endurance, Improve diet and eating habits (eat healthier), Control risk factors (learn risk factor modification) Scale for measuring improvement of personal goals: Enter appropriate number in Comments. 2 = Unchanged. 3 = Slightly Better. 4 = Moderate Improvement. 5 = Met my Goal - Diagnosis & Disease Process Outcomes/Goals: Pt IDs own risk factors & lifestyle modifications by Session 10, Verbalizes symptoms of angina & response by session 3., Pt independently manages, Other Additional Outcomes/Goals: Plan/Interventions: Assist Pt to ID & engage in lifestyle modification to reduce CVD risk, Instruct on individual risk factors, Review symptoms of angina & emergency actions, Review secondary diagnosis & identify educational needs., Other see comment 30 day Reassessments:: Not Met 30 day Reassessments:: Not Met 30 day Reassessments:: Not Met 30 day Reassessments:: Not Met Final Reassessments:: Not Met - Safety Referral to Physical Therapy: No Referral to [facility] Case Management: No Fall Risk Assessed:: Yes Assistive Devices:: None Exercise - Initial Assessment - Visit Date of Eval: 09/27/22 - initial eval - Physician Prescribed Exercise Modalities: Treadmill, Airdyne, NuStep, SciFit, Lateral Director Report Frequency: 3x/week for 12 weeks [36 sessions] Intensity: 60-80% of age predicted maximum heart rate reserve Current METSs:: 4 Target Heart Rate:: 110-127 Resting Blood Pressure: 102/70 EKG Type: dual lead pacer-atrial paced rhythm - Outcomes & Goals Goals:: Verbalizes understanding of THR, RPE & goal METS by session 6, Documents in home exercise log/reports 30 min aerobic 5 day/wk by DC, Demonstrates accurate pulse taking by DC, Other additional outcome/goals: see below - Intervention & Plan Exercise Program Goals: Instruct on personal THR & RPE, Instruct on MET level & personal MET goal, Show patient to take own pulse /validate performance until accurate, Instruct on home exercise, Other additional plan/int - Physical Activity Home Exercise Physical Activity - Home Exercise: Safe Exercise, Warm-up, Self-monitoring, Cool-Down, Home Exercise > 30 min Daily, Sitting Time <3 hours/daily - Outcomes & Goals Outcomes/Goals: Demonstrates correct Warm-up/exercise Cool-Down (S3) if = 2.5 METs, Verbalizes symptoms of exercise intolerance by Session 3 (S3), Demonstrate safe equipment use (S3) & follows exercise prescrition (6), Other: See below - Intervention & Plan Plan/Intervention: Instruct warm-up & cool-down if exercising at > 2 METs, Instruct on symptoms of exercise intolerance & actions to take, Instruct & monitor on saf, Assess intial functional capacity & safety risk, Other See below Nutrition - Initial Assessment - Program Goals Nutrition Program Goals: LDL <100 optimal. 100 - 129 Near optimal. 130 - 159 Borderline High. 160 - 189 High. Total Cholesterol <200 desirable. 200 - 239 Borderline High. >/= 240 High. HDL < 40 Low >/=60 High. Triglycerides <150 desirable. <199 optimal. VlDL 5 - 40. HgbA1C <7%. BMI <25 Patient has diagnosis of Hyperlipidemia (ICD E78)?: No - Visit Date of Assessment:: 09/27/22 - initial eval - Cholesterol/Lipids (Other Core Measures) Determine presence & major risk factors that modify LDL goal: Family history of premature CHD in Male < 55 years: female <65 yearsFa, Age men > 45 years; women >/= 55 years Outcomes/Goals: Pt IDs own risk factors & lifestyle modifications by Session 10, Verbalizes symptoms of angina & response by session 3., Pt independently manages, Other Additional Outcomes/Goals: Intervention/Plan: Advocate for lipid panel cholesterol medication if applicable, Instruct on personal lipid levels & lipid goals/NCEP guidelines, Instruct on cholesterol, Other additional plan/int Referral to dietitian:: Yes - Diabetes (Other Core Measures) Diabetes Type: Not Applicable - Weight Mgt (Other Care) Height: 6 ft 5 in Weight:: 142.428 kg BMI: 37.2 Diagnosis Overweight/Obesity BMI> 30% ICD-10 E66: Yes Diagnosis High BMI/Morbid Obesity BMI> 35% ICD-10 Z68: Yes Outcomes/Goals: Pt sets, maintains & shows weight loss goal & trend during rehab, Other additional outcomes/goals Intervention/Plan: Instruct on ideal BMI & set weight loss goal w/patient, Assist pt to ID & incorporate diet changes for weight loss by S9, Refer to [facility] Loss program as appropriate, Encourage goal of using 250-300dcal per session for weight loss, Other additional plan/interventions - Healthy Eating Habits Will attend diet classes:: Yes Outcomes/Goals:: Consume diet rich in vegs,fruits,whole grain/high fiber,fish,lean meat, Limit sat/trans fats,cholesterol & added salts & sugars, Other additional outcome/goals: Intervention/Plan:: Assess current eating habits, Other Additional plan/interventions - Education Gave educational materials for:: Signs & symptoms of hypoglycemia, Signs & symptoms of hyperglycemia, Relate diabetes to coronary artery disease, Healthy eating Nutrition - 30-Day Assessment Nutrition - 60-Day Assessment Nutrition - 90-Day Assessment Nutrition - Final Assessment Core - Initial Assessment - Visit Date of Eval: 09/27/22 - initial eval - Medication Compliance Preventative Medication(s):: Aspirin, Beta krystyna, Warfarin/Coumadin H/O mental health issues: depression, anxiety, or addiction?: No Doesn?t believe in the benefits of treatment?: No Believes medications are unnecessary or harmful?: No Has a concern about medication side effects?: No Expresses concern over the cost of medications?: No Outcomes/Goals: Verbalizes medications,desired effect & common side effects @ DC, Pt self-reports following medication regimen, Keeps card in wallet w/medications listed by DC, Other additional outcome/goals: Interventions/plans: Instruct on medication effects & side effects, Review medication list w/patient every two weeks, Instruct importance of taking meds as ordered & assist problem solving, Other additional - Tobacco Use Tobacco Use: Non-smoker Do you use smokeless tobacco?: No - Hypertension Resting Blood Pressure:: 102/70 [place] [employer] Hypertension Guidelines: [place] [employer] Hypertension Guidelines. Normal BP Less than 120/80. Elevated BP 120/80. Hypertension Stage 1: BP 130-139/80-89. Hypertesnion Stage 2: BP 140 or hig her/90 or higher. Hypertension Crisis: BP higher than 180/120 Outcomes/Goals: Able to verbalize/achieve optimal blood pressure <130/80, Incorporates diet changes & exercise for blood pressure control by DC, Other additional outcomes/goals Interventions/plan: Instruct on optimal blood pressure, hypertension & medications, Instruct on effects of sodium, alcohol, stress, exercise &hypertension, Other additional plan/interventions - Tobacco Cessation Referral Smoking Cessation Referral:: No Individual Education/Counseling:: No Education Schedule Given:: Yes Core - 30-Day Assessment Core - 60-Day Assessment Core - 90 Day Assessment Core - Final Assessment Psychosocial - Initial Assess - VIsit Date of Eval: 09/27/22 - initial eval History of previous Mental disease:: No - Outcomes/Goals: See list Psychosocial Outcomes/Goals:: ID's personal stressors & 2 strategies to manage stress by discharge, Other Additional outcome/goals: Psychosocial - 30-Day Assess Psychosocial - 60-Day Assess Psychosocial - 90-Day Assess Psychosocial - Final Assessmen Patient Health Questionnaire Initial Assessment 1. Little interest or pleasure in doing things: Not at all 2. Feeling down, depressed, or hopeless: Not at all 3. Trouble falling or staying asleep, or sleeping too much: Not at all 4. Feeling tired or having little energy: More than half the days 5. Poor appetite or overeating: Several days 6. Feeling bad about yourself -- or that you are a failure or have let yourself or your family down: Not at all 7. Trouble concentrating on things, such as reading the newspaper or watching television: Not at all 8. Moving or speaking so slowly that other people could have noticed. Or the opposite - being so fidgety or restless that you have been moving around a lot more than usual: Not at all 9. Thoughts that you would be better off , or of hurting yourself in some way: Not at all How difficult have these problems made it for you to do your work, take care of things at home, or get along with other people?: Not difficult at all Total Score: 3 MARTHA-Q SV Test - Statements CAD is a disease of the arteries in the heart: False Examples of risk factors for heart disease: True Angina is chest pain or discomfort: I Don't Know The benefits of resistance training include: True Eating more meat and dairy products: I Don't Know Anti-platelet medications such as aspirin are important: True The only effective way to manage stress: False An exercise warm-up slowly increases heart rate: True Prepared, processed foods usually have high sodium: True Depression is common after a heart attack: True The statin medications lower cholesterol: True To control blood pressure, lower the amount of sodium: I Don't Know If someone gets chest discomfort during walking: False Transfats are partially hydrogenated vegetable oils: True Sleep apnea that is not treated increases the risk: False To control cholesterol, one should become a vegetarian: False Someone knows if he/she is exercising at the right level: True Diabetes cannot be prevented with exercise & health eating: I Don't Know Stress is a large risk for heart attack: True A diet that can help lower blood pressure is rich in: I Don't Know - Total Score Total Correct Responses: 15 Self-Efficacy Initial Assessment We would like to know how confident you are in doing certain activities. Please select your confidence level for:: Select your confidence level for the following using the scale 1-10 where 1 is not at all confident and 10 is totally confident. Your score is the average of all 6 responses. Fatigue: How confident are you that you can keep the fatigue caused by your disease from interfering with the things you want to do? Select Number: 10 Physical Discomfort or Pain: How confident are you that you can keep the physical discomfort or pain of your disease from interfering with the things you want to do? Select Number: 10 Emotional Distress: How confident are you that you can keep the emotional distress caused by your disease from interfering with the things you want to do? Select Number: 10 Other Symptoms or Health Problems: How confident are you that you can keep other symptoms or health problems from interfering with the things you want to do? Select Number: 10 Different Tasks and Activities: How confident are you that you can do the different tasks and activities needed to manage your health condition so as to reduce your need to see a doctor? Select Number: 10 Medication: How confident are you that you can do things other than just taking medication to reduce how much your illness affects your everyday life? Select Number: 10 Total Score:: 10 Nutrition Survey - Nutrition Survey Initial Have you lost >10 lbs over the past 2 months without trying?: No Are you following a special diet at home for diabetes, low fat, or low salt?: No Are you interested in meeting with a dietitian for help understanding your diet?: Yes Do you eat less than 3 meals a day?: Yes Do you eat fatty meats (dasilva, sausage, ribs, etc), fried foods, desserts, large amounts of salad dressings, margarine, butter, or cheese most days?: Yes Do you have food allergies? [Enter types in comment field]: No Do you eat in restaurants more than 3 times a week?: Yes Do you season food with salt, seasoning salt, or garlic salt?: No Do you used canned, boxed, frozen meals, or soups, seasoning packets?: Yes Total Score:: 5
[2022-09-27 11:06] VITALS: BP 102/70; BMI 37.2
== END | disposition home or self-care (01) ==
PROVIDERS: PCP Nurse Practitioner Family
DX: Z00.00 Encounter for general adult medical examination without abnormal findings (principal)

== ENCOUNTER 2022-10-20 08:00 | Outpatient (RCR) | payer SELFPAY, OTHER ==
[2022-09-27 11:06] VITALS: BMI 37.2
== END 2022-10-31 23:59 ==
LOC: CR 08:00
PROVIDERS: PCP Nurse Practitioner Family
DX: Z95.2 Presence of prosthetic heart valve (principal); Z95.828 Presence of other vascular implants and grafts
CPT/HCPCS: 93798

== ENCOUNTER 2022-12-01 08:00 | Outpatient (RCR) | payer SELFPAY, OTHER ==
[2022-09-27 11:06] VITALS: BMI 37.2
--- NOTE | 2022-11-24 10:09 | CR.ITP_ITS ---
Diagnosis Exercise - 60-day Assessment - Visit Date of Eval: 11/24/22 Session #:: 15 - Physician Prescribed Exercise Modalities: Treadmill, Airdyne, NuStep Frequency: 3x/week for 12 weeks [36 sessions] Intensity: 60-80% of age predicted maximum heart rate reserve Current METSs:: 4 Target Heart Rate:: 110-127 Current RPE:: 12-13 Maximum Excercise HR:: 114 Resting Blood Pressure: 120/60 Maximum Exercise Blood Pressure: 128/70 EKG Type: SR/Paced with occas PVC, vent trigeminy, vent quadrigeminy - Outcomes & Goals Goals:: Verbalizes understanding of THR, RPE & goal METS by session 6, Documents in home exercise log/reports 30 min aerobic 5 day/wk by DC, Demonstrates accurate pulse taking by DC, Other additional outcome/goals: see below - Intervention & Plan Exercise Program Goals: Instruct on personal THR & RPE, Instruct on MET level & personal MET goal, Show patient to take own pulse /validate performance until accurate, Instruct on home exercise, Other additional plan/int - 30-day Reassessments 30 day Reassessments:: Progressing - increasing workloeads - Physical Activity Home Exercise Physical Activity - Home Exercise: Safe Exercise, Warm-up, Self-monitoring, Cool-Down, Home Exercise > 30 min Daily, Sitting Time <3 hours/daily - Outcomes & Goals Outcomes/Goals: Demonstrates correct Warm-up/exercise Cool-Down (S3) if = 2.5 METs, Verbalizes symptoms of exercise intolerance by Session 3 (S3), Demonstrate safe equipment use (S3) & follows exercise prescrition (6), Other: See below - Intervention & Plan Plan/Intervention: Instruct warm-up & cool-down if exercising at > 2 METs, Instruct on symptoms of exercise intolerance & actions to take, Instruct & monitor on saf, Assess intial functional capacity & safety risk, Other See below - 30-day Reassessments 30 day Reassessments:: Progressing - warm up explained Nutrition - Initial Assessment Nutrition - 30-Day Assessment Nutrition - 60-Day Assessment - Visit Date of Assessment:: 11/24/22 Session #:: 15 - Cholesterol/Lipids (Other Core Measures) Determine presence & major risk factors that modify LDL goal: Hypertension or hypertensive medication, Low HDL cholesterol <40 mg/dL*, Family history of premature CHD in Male < 55 years: female <65 yearsFa, Age men > 45 years; women >/= 55 years Outcomes/Goals: Pt IDs own risk factors & lifestyle modifications by Session 10, Verbalizes symptoms of angina & response by session 3., Pt independently manages, Other Additional Outcomes/Goals: Intervention/Plan: Advocate for lipid panel cholesterol medication if applicable, Instruct on personal lipid levels & lipid goals/NCEP guidelines, Instruct on cholesterol, Other additional plan/int 30-day Reassessments:: Progressing - encouraged to take meds - Diabetes (Other Core Measures) Diabetes Type: Not Applicable - Weight Mgt (Other Care) Height: 6 ft 5 in Weight:: 146.51 kg BMI: 38.2 Diagnosis Overweight/Obesity BMI> 30% ICD-10 E66: Yes Diagnosis High BMI/Morbid Obesity BMI> 35% ICD-10 Z68: Yes Outcomes/Goals: Pt sets, maintains & shows weight loss goal & trend during rehab, Other additional outcomes/goals Intervention/Plan: Instruct on ideal BMI & set weight loss goal w/patient, Assist pt to ID & incorporate diet changes for weight loss by S9, Refer to [facility] program as appropriate, Encourage goal of using 250- 300dcal per session for weight loss, Other additional plan/interventions 30 day Reassessments:: Progressing - Will attend nutrition class - Healthy Eating Habits Will attend diet classes:: Yes Outcomes/Goals:: Consume diet rich in vegs,fruits,whole grain/high fiber,fish,lean meat, Limit sat/trans fats,cholesterol & added salts & sugars, Other additional outcome/goals: Intervention/Plan:: Assess current eating habits, Other Additional plan/interventions 30-day Reassessments:: Progressing - will attend nutrition class - Education Gave educational materials for:: Signs & symptoms of hypoglycemia, Signs & symptoms of hyperglycemia, Relate diabetes to coronary artery disease, Healthy eating Nutrition - 90-Day Assessment Nutrition - Final Assessment Core - Initial Assessment Core - 30-Day Assessment Core - 60-Day Assessment - Visit Date of Eval: 11/24/22 Session #:: 15 - Medication Compliance Preventative Medication(s):: Aspirin, Beta krystyna, Warfarin/Coumadin H/O mental health issues: depression, anxiety, or addiction?: No Doesn?t believe in the benefits of treatment?: No Believes medications are unnecessary or harmful?: No Has a concern about medication side effects?: No Expresses concern over the cost of medications?: No Outcomes/Goals: Verbalizes medications,desired effect & common side effects @ DC, Pt self-reports following medication regimen, Keeps card in wallet w/medications listed by DC, Other additional outcome/goals: Interventions/plans: Instruct on medication effects & side effects, Review medication list w/patient every two weeks, Instruct importance of taking meds as ordered & assist problem solving, Other additional 30-day Reassessments:: Progressing - encouraged to take meds - Tobacco Use Tobacco Use: Non-smoker - Hypertension Resting Blood Pressure:: 120/60 [place] [employer] Hypertension Guidelines: [place] [employer] Hypertension Guidelines. Normal BP Less than 120/80. Elevated BP 120/80. Hypertension Stage 1: BP 130-139/80-89. Hypertesnion Stage 2: BP 140 or higher/90 or higher. Hypertension Crisis: BP higher than 180/120 Peak Exercise Blood Pressure:: 128/70 Outcomes/Goals: Able to verbalize/achieve optimal blood pressure <130/80, Incorporates diet changes & exercise for blood pressure control by DC, Other additional outcomes/goals Interventions/plan: Instruct on optimal blood pressure, hypertension & medications, Instruct on effects of sodium, alcohol, stress, exercise &hypertension, Other additional plan/interventions 30 day Reassessments:: Progressing - encouraged to take meds - Tobacco Cessation Referral Smoking Cessation Referral:: No Individual Education/Counseling:: No Education Schedule Given:: Yes Core - 90 Day Assessment Core - Final Assessment Psychosocial - Initial Assess Psychosocial - 30-Day Assess Psychosocial - 60-Day Assess - VIsit Date of Eval: 11/24/22 Session #:: 15 History of previous Mental disease:: No Psychosocial - 90-Day Assess Psychosocial - Final Assessmen Patient Health Questionnaire 60-Day Re-eval Assessment 1. Little interest or pleasure in doing things: Not at all 2. Feeling down, depressed, or hopeless: Not at all 3. Trouble falling or staying asleep, or sleeping too much: Not at all 4. Feeling tired or having little energy: More than half the days 5. Poor appetite or overeating: Several days 6. Feeling bad about yourself -- or that you are a failure or have let yourself or your family down: Not at all 7. Trouble concentrating on things, such as reading the newspaper or watching television: Not at all 8. Moving or speaking so slowly that other people could have noticed. Or the opposite - being so fidgety or restless that you have been moving around a lot more than usual: Not at all 9. Thoughts that you would be better off , or of hurting yourself in some way: Not at all How difficult have these problems made it for you to do your work, take care of things at home, or get along with other people?: Not difficult at all Total Score: 3 Self-Efficacy 60-Day Re-eval Assessment We would like to know how confident you are in doing certain activities. Please select your confidence level for:: Select your confidence level for the following using the scale 1-10 where 1 is not at all confident and 10 is totally confident. Your score is the average of all 6 responses. Fatigue: How confident are you that you can keep the fatigue caused by your disease from interfering with the things you want to do? Select Number: 10 Physical Discomfort or Pain: How confident are you that you can keep the physical discomfort or pain of your disease from interfering with the things you want to do? Select Number: 10 Emotional Distress: How confident are you that you can keep the emotional distress caused by your disease from interfering with the things you want to do? Select Number: 10 Other Symptoms or Health Problems: How confident are you that you can keep other symptoms or health problems from interfering with the things you want to do? Select Number: 10 Different Tasks and Activities: How confident are you that you can do the different tasks and activities needed to manage your health condition so as to reduce your need to see a doctor? Select Number: 10 Medication: How confident are you that you can do things other than just taking medication to reduce how much your illness affects your everyday life? Select Number: 10 Total Score:: 10 Nutrition Survey
[2022-11-24 10:23] VITALS: BP 120/60; BP 128/70; BMI 38.2
== END 2022-12-01 23:59 ==
LOC: CR 08:00
PROVIDERS: PCP Nurse Practitioner Family
DX: Z95.2 Presence of prosthetic heart valve (principal); Z95.828 Presence of other vascular implants and grafts
CPT/HCPCS: 93798

== ENCOUNTER 2022-12-27 08:00 | Outpatient (RCR) | payer SELFPAY, OTHER ==
[2022-11-24 10:23] VITALS: BMI 38.2
[2022-12-02 00:55] VITALS: BP 120/60; BP 128/70
--- NOTE | 2022-12-25 08:04 | CR.ITP_ITS ---
Diagnosis Exercise - 90-day Assessment - Visit Date of Eval: 12/25/22 Session #:: 25 - Physician Prescribed Exercise Modalities: Treadmill, Airdyne, NuStep Frequency: 3x/week for 12 weeks [36 sessions] Intensity: 60-80% of age predicted maximum heart rate reserve Current METSs:: 4 Target Heart Rate:: 110-127 Current RPE:: 10-13.5 Maximum Excercise HR:: 100 Resting Blood Pressure: 128/68 Maximum Exercise Blood Pressure: 132/72 EKG Type: SR/Paced to ST with rare PVC/PAC - Outcomes & Goals Goals:: Verbalizes understanding of THR, RPE & goal METS by session 6, Documents in home exercise log/reports 30 min aerobic 5 day/wk by DC, Demonstrates accurate pulse taking by DC, Other additional outcome/goals: see below - Intervention & Plan Exercise Program Goals: Instruct on personal THR & RPE, Instruct on MET level & personal MET goal, Show patient to take own pulse /validate performance until accurate, Instruct on home exercise, Other additional plan/int - 30-day Reassessments 30 day Reassessments:: Met - Physical Activity Home Exercise Physical Activity - Home Exercise: Safe Exercise, Warm-up, Self-monitoring, Cool-Down, Home Exercise > 30 min Daily, Sitting Time <3 hours/daily - Outcomes & Goals Outcomes/Goals: Demonstrates correct Warm-up/exercise Cool-Down (S3) if = 2.5 METs, Verbalizes symptoms of exercise intolerance by Session 3 (S3), Demonstrate safe equipment use (S3) & follows exercise prescrition (6), Other: See below - Intervention & Plan Plan/Intervention: Instruct warm-up & cool-down if exercising at > 2 METs, Instruct on symptoms of exercise intolerance & actions to take, Instruct & monitor on saf, Assess intial functional capacity & safety risk, Other See below - 30-day Reassessments 30 day Reassessments:: Met Nutrition - Initial Assessment Nutrition - 30-Day Assessment Nutrition - 60-Day Assessment Nutrition - 90-Day Assessment - Visit Date of Assessment:: 12/25/22 Session #:: 25 - Cholesterol/Lipids (Other Core Measures) Determine presence & major risk factors that modify LDL goal: Hypertension or hypertensive medication, Low HDL cholesterol <40 mg/dL*, Family history of pre mature CHD in Male < 55 years: female <65 yearsFa, Age men > 45 years; women >/= 55 years Outcomes/Goals: Pt IDs own risk factors & lifestyle modifications by Session 10, Verbalizes symptoms of angina & response by session 3., Pt independently manages, Other Additional Outcomes/Goals: Intervention/Plan: Advocate for lipid panel cholesterol medication if applicable, Instruct on personal lipid levels & lipid goals/NCEP guidelines, Instruct on cholesterol, Other additional plan/int - Diabetes (Other Core Measures) Diabetes Type: Not Applicable - Weight Mgt (Other Care) Height: 6 ft 5 in Weight:: 149.685 kg BMI: 39.1 Diagnosis Overweight/Obesity BMI> 30% ICD-10 E66: Yes Diagnosis High BMI/Morbid Obesity BMI> 35% ICD-10 Z68: Yes Outcomes/Goals: Pt sets, maintains & shows weight loss goal & trend during rehab, Other additional outcomes/goals Intervention/Plan: Instruct on ideal BMI & set weight loss goal w/patient, Assist pt to ID & incorporate diet changes for weight loss by S9, Refer to Structured Weight Loss program as appropriate, Encourage goal of using 250- 300dcal per session for weight loss, Other additional plan/interventions 30 day Reassessments:: Progressing - Pt is taking water pill PRN - Healthy Eating Habits Will attend diet classes:: Yes Outcomes/Goals:: Consume diet rich in vegs,fruits,whole grain/high fiber,fish,lean meat, Limit sat/trans fats,cholesterol & added salts & sugars, Other additional outcome/goals: 30-day Reassessments:: Progressing - Will attend nutrition class - Education Gave educational materials for:: Signs & symptoms of hypoglycemia, Signs & symptoms of hyperglycemia, Relate diabetes to coronary artery disease, Healthy eating Nutrition - Final Assessment Core - Initial Assessment Core - 30-Day Assessment Core - 60-Day Assessment Core - 90 Day Assessment - Visit Date of Eval: 12/25/22 Session #:: 25 - Medication Compliance Preventative Medication(s):: Beta krystyna, Warfarin/Coumadin H/O mental health issues: depression, anxiety, or addiction?: No Doesn?t believe in the benefits of treatment?: No Believes medications are unnecessary or harmful?: No Has a concern about medication side effects?: No Expresses concern over the cost of medications?: No Outcomes/Goals: Verbalizes medications,desired effect & common side effects @ DC, Pt self-reports following medication regimen, Keeps card in wallet w/medications listed by DC, Other additional outcome/goals: Interventions/plans: Instruct on medication effects & side effects, Review medication list w/patient every two weeks, Instruct importance of taking meds as ordered & assist problem solving, Other additional 30-day Reassessments:: Met - pt is taking his meds - Tobacco Use Tobacco Use: Non-smoker Do you use smokeless tobacco?: No - Hypertension Resting Blood Pressure:: 128/68 [place] [employer] Hypertension Guidelines: [place] [employer] Hypertension Guidelines. Normal BP Less than 120/80. Elevated BP 120/80. Hypertension Stage 1: BP 130-139/80-89. Hypertesnion Stage 2: BP 140 or higher/90 or higher. Hypertension Crisis: BP higher than 180/120 Peak Exercise Blood Pressure:: 132/72 Outcomes/Goals: Able to verbalize/achieve optimal blood pressure <130/80, Incorporates diet changes & exercise for blood pressure control by DC, Other additional outcomes/goals Interventions/plan: Instruct on optimal blood pressure, hypertension & medications, Instruct on effects of sodium, alcohol, stress, exercise &hypertension, Other additional plan/interventions 30 day Reassessments:: Met - Tobacco Cessation Referral Smoking Cessation Referral:: No Individual Education/Counseling:: No Education Schedule Given:: Yes Core - Final Assessment Psychosocial - Initial Assess Psychosocial - 30-Day Assess Psychosocial - 60-Day Assess Psychosocial - 90-Day Assess - VIsit Date of Eval: 12/25/22 Session #:: 25 History of previous Mental disease:: No Psychosocial - Final Assessmen Patient Health Questionnaire 90-Day Re-eval Assessment 1. Little interest or pleasure in doing things: Not at all 2. Feeling down, depressed, or hopeless: Not at all 3. Trouble falling or staying asleep, or sleeping too much: Not at all 4. Feeling tired or having little energy: More than half the days 5. Poor appetite or overeating: Several days 6. Feeling bad about yourself -- or that you are a failure or have let yourself or your family down: Not at all 7. Trouble concentrating on things, such as reading the newspaper or watching television: Not at all 8. Moving or speaking so slowly that other people could have noticed. Or the opposite - being so fidgety or restless that you have been moving around a lot more than usual: Not at all 9. Thoughts that you would be better off , or of hurting yourself in some way: Not at all How difficult have these problems made it for you to do your work, take care of things at home, or get along with other people?: Not difficult at all Total Score: 3 Self-Efficacy 90-Day Re-eval Assessment We would like to know how confident you are in doing certain activities. Please select your confidence level for:: Select your confidence level for the following using the scale 1-10 where 1 is not at all confident and 10 is totally confident. Your score is the average of all 6 responses. Fatigue: How confident are you that you can keep the fatigue caused by your disease from interfering with the things you want to do? Select Number: 10 Physical Discomfort or Pain: How confident are you that you can keep the physical discomfort or pain of your disease from interfering with the things you want to do? Select Number: 10 Emotional Distress: How confident are you that you can keep the emotional distress caused by your disease from interfering with the things you want to do? Select Number: 10 Other Symptoms or Health Problems: How confident are you that you can keep other symptoms or health problems from interfering with the things you want to do? Select Number: 10 Different Tasks and Activities: How confident are you that you can do the different tasks and activities needed to manage your health condition so as to reduce your need to see a doctor? Select Number: 10 Medication: How confident are you that you can do things other than just taking medication to reduce how much your illness affects your everyday life? Select Number: 10 Total Score:: 10 Nutrition Survey
[2022-12-25 08:17] VITALS: BP 128/68; BP 132/72; BMI 39.1
== END 2022-12-31 23:59 ==
LOC: CR 08:00
PROVIDERS: PCP Nurse Practitioner Family
DX: Z95.2 Presence of prosthetic heart valve (principal); Z95.828 Presence of other vascular implants and grafts
CPT/HCPCS: 93798

== ENCOUNTER 2023-01-01 06:03 | Outpatient (RCR) | payer SELFPAY, OTHER ==
[2022-12-25 08:17] VITALS: BMI 39.1
[2023-01-01 00:19] VITALS: BP 128/68; BP 132/72
== END 2023-01-31 23:59 ==
LOC: CR 06:03
PROVIDERS: PCP Nurse Practitioner Family
DX: Z95.2 Presence of prosthetic heart valve (principal); Z95.828 Presence of other vascular implants and grafts
CPT/HCPCS: 93798